=== PATIENT | male | born 1965 | race Caucasian/White ===

== ENCOUNTER 2023-10-04 21:07 | Inpatient (IN) | payer MEDICAID, MEDICARE, OTHER ==
[~2023-10-04] VITALS: Ht 170.2 cm; Wt 71.3 kg
[~2023-10-04 21:07] MED LIST: OLAN5TAB52 PO
[2023-10-04 22:13] LABS: ALCOHOL, URINE DRUG SCREEN NEGATIVE (NEGATIVE); AMPHET/METH SCREEN,URINE NEGATIVE (NEGATIVE); BARBITURATE SCREEN, URINE NEGATIVE (NEGATIVE); BENZODIAZEPINES SCREEN,URINE NEGATIVE (NEGATIVE); CANNABINOID SCREEN,URINE NEGATIVE (NEGATIVE); COCAINE SCREEN,URINE NEGATIVE (NEGATIVE); METHADONE SCREEN, URINE NEGATIVE (NEGATIVE); OPIATE SCREEN,URINE NEGATIVE (NEGATIVE); PHENCYCLIDINE SCREEN,URINE NEGATIVE (NEGATIVE)
[2023-10-04 22:30] LABS: COVID AG,FIA SOURCE NASAL SWAB
[2023-10-04 22:44] LABS: BASOPHILS % (AUTO) 0.2 % (0.0-2.0); EOSINOPHILS % (AUTO) 0.3 % (1.0-6.0); HEMATOCRIT 43.2 % (41-53); LYMPHOCYTES # (AUTO) 1.4 K/uL (1.0-4.8); LYMPHOCYTES % (AUTO) 12.2 % (22.0-44.0); MEAN CORPUSCULAR HEMOGLOBIN 29.4 pg (26.0-34.0); MEAN CORPUSCULAR HGB CONC 32.5 G/dL (31.0-37.0); MEAN CORPUSCULAR VOLUME 91 fL (80-100); MONOCYTES # (AUTO) 0.9 K/uL (0.1-1.0); MONOCYTES % (AUTO) 7.6 % (2.0-9.0); NEUTROPHILS # (AUTO) 9.2 K/uL (1.8-7.7); NEUTROPHILS % (AUTO) 79.7 % (40.0-70.0); PLATELET COUNT (AUTO) 338 K/uL (150-450); RED BLOOD CELL COUNT(AUTO) 4.77 MIL/uL (4.50-5.90); RED CELL DISTRIBUTION WIDTH 13.4 % (11.5-14.5); WHITE BLOOD COUNT (AUTO) 11.5 K/uL (4.5-11.0)
[2023-10-04] MEDS: LORazepam 2 MG TABLET PO ONE (22:44)
[2023-10-04 22:48] LABS: SARS-COV2 (COVID) ANTIGEN,FIA Negative (Negative)
[2023-10-04 22:58] LABS: ANION GAP 11 mmol/L (8-16); CALCIUM, TOTAL 9.1 mg/dL (8.8-10.5); CARBON DIOXIDE 26 mmol/L (22-29); CHLORIDE 101 mmol/L (98-107); CREATININE 0.81 mg/dL (0.60-1.30); GLOMERULAR FILTR. RATE CALC > 60 mL/min (>60); GLUCOSE,RANDOM 119 mg/dL (70-110); POTASSIUM 3.5 mmol/L (3.5-5.1); SODIUM SERUM 138 mmol/L (136-145); UREA NITROGEN, BLOOD 10 mg/dL (7-18)
[2023-10-04] MEDS ORDERED: LORazepam 2 MG TABLET PO PRN (23:00)
[2023-10-04] MEDS ORDERED: OLANZapine 5 MG RAPDIS TABLET PO PRN (23:00)
[2023-10-04 23:05] LABS: ALANINE AMINOTRANSFERASE 23 U/L (12-78); ALBUMIN 4.3 g/dL (3.4-5.0); ALKALINE PHOSPHATASE 95 U/L (46-116); ASPARTATE AMINOTRANSFERASE 16 U/L (15-37); BILIRUBIN,TOTAL 1.7 mg/dL (0.1-1.0); TOTAL PROTEIN, SERUM 7.8 g/dL (6.4-8.2)
[2023-10-04 23:48] LABS: ALCOHOL, BLOOD (SERUM) < 3 mg/dL (0-10)
[2023-10-05] MEDS ORDERED: PROMETHAZINE HCL 25 MG TABLET PO PRN (11:30)
[2023-10-05] MEDS ORDERED: MAG HYDROX/ALUMINUM HYD/SIMETH ES 30 ML SUSPENSION UDCUP PO PRN (11:30)
[2023-10-05] MEDS ORDERED: MAGNESIUM HYDROXIDE SUSPENSION 30 ML UDCUP PO PRN (11:30)
[2023-10-05] MEDS ORDERED: LOPERAMIDE HCL 2 MG CAPSULE PO PRN (11:30)
[2023-10-05] MEDS ORDERED: ACETAMINOPHEN 325 MG TABLET PO PRN (11:30)
[2023-10-05] MEDS ORDERED: TUBERCULIN, PURIFIED PROTEIN DERIVATIVE 5 TU/0.1 ML SYRINGE ID ONE (11:30)
[2023-10-05] MEDS ORDERED: HydrOXYzine PAMOATE 50 MG CAPSULE PO PRN (11:30)
[2023-10-05] MEDS ORDERED: GuaiFENesin/D-METHORPHAN [SUGAR-FREE] 200-20MG/10 ML SYRUP UDCUP PO PRN (11:30)
[2023-10-05 13:29] VITALS: BP 148/88; PULSE 89; RESP 18; TEMP 98; O2SAT 98
[2023-10-05] MEDS: THIAMINE 100 MG TABLET PO SCH (16:43)
[2023-10-05] MEDS: PALIPERIDONE PALMITATE 234 MG/1.5 ML SYRINGE IM ONE (17:30)
[2023-10-05 20:03] VITALS: BP 150/96; PULSE 95; RESP 18; TEMP 97.7; O2SAT 99
[2023-10-05] MEDS: OLANZapine 5 MG RAPDIS TABLET PO SCH (20:37)
[2023-10-05] MEDS: MELATONIN 5 MG TABLET PO SCH (20:38)
[2023-10-06] MEDS: FOLIC ACID 1 MG TABLET PO SCH (08:03)
[2023-10-06] MEDS: MULTIVITAMINS WITH MINERALS, THERAPEUTIC TABLET PO SCH (08:03)
[2023-10-06 08:53] LABS: BASOPHILS % (AUTO) 0.4 % (0.0-2.0); EOSINOPHILS % (AUTO) 1.3 % (1.0-6.0); HEMATOCRIT 39.7 % (41-53); HEMOGLOBIN 13.3 g/dL (13.5-17.5); LYMPHOCYTES # (AUTO) 1.3 K/uL (1.0-4.8); LYMPHOCYTES % (AUTO) 16.4 % (22.0-44.0); MEAN CORPUSCULAR HEMOGLOBIN 30.1 pg (26.0-34.0); MEAN CORPUSCULAR HGB CONC 33.4 G/dL (31.0-37.0); MEAN CORPUSCULAR VOLUME 90 fL (80-100); MONOCYTES # (AUTO) 0.7 K/uL (0.1-1.0); MONOCYTES % (AUTO) 8.4 % (2.0-9.0); NEUTROPHILS % (AUTO) 73.5 % (40.0-70.0); PLATELET COUNT (AUTO) 267 K/uL (150-450); RED CELL DISTRIBUTION WIDTH 13.4 % (11.5-14.5); WHITE BLOOD COUNT (AUTO) 8.2 K/uL (4.5-11.0)
[2023-10-06 09:20] LABS: CHOL/HDL RATIO 2.8 (4.2-7.3); FREE T4 (FREE THYROXINE) 1.38 ng/dL (0.76-1.46); THYROID STIMULATING HORMONE 1.21 uIU/mL (0.36-3.74)
[2023-10-06 09:27] VITALS: BP 131/76; PULSE 96; RESP 17; TEMP 97.7; O2SAT 100
[2023-10-06 21:22] VITALS: BP 130/74; PULSE 89; RESP 16; TEMP 98.6; O2SAT 99
[2023-10-07 08:10] VITALS: BP 124/79; PULSE 91; RESP 19; TEMP 97.3; O2SAT 99
[2023-10-07 21:03] VITALS: BP 142/82; PULSE 100; RESP 18; TEMP 98.5
[2023-10-08 10:43] VITALS: BP 137/78; PULSE 90; RESP 17; TEMP 98; O2SAT 98
[2023-10-08] MEDS: DIVALPROEX SODIUM 500 MG ER TABLET PO SCH (21:21)
[2023-10-08 23:30] VITALS: RESP 18
[2023-10-09 08:01] VITALS: BP 135/70; PULSE 96; RESP 18; TEMP 97.6; O2SAT 100
[2023-10-09] MEDS: PALIPERIDONE PALMITATE 156 MG/ML SYRINGE IM ONE (10:14)
[2023-10-09 20:02] VITALS: BP 145/86; PULSE 100; RESP 19; TEMP 97.8; O2SAT 99
[2023-10-09] MEDS: ZOLPIDEM TARTRATE 10 MG TABLET PO PRN (20:21)
[2023-10-10 08:02] VITALS: BP 133/80; PULSE 87; RESP 18; TEMP 98; O2SAT 100
[2023-10-10 20:03] VITALS: BP 136/90; PULSE 102; RESP 18; TEMP 97.8; O2SAT 100
[2023-10-11 08:28] VITALS: BP 131/67; PULSE 92; RESP 18; TEMP 98; O2SAT 97
[2023-10-11 21:45] VITALS: BP 114/79; PULSE 120; RESP 18; TEMP 97.5; O2SAT 98
[2023-10-12 08:17] VITALS: BP 127/71; PULSE 96; RESP 18; TEMP 97.8; O2SAT 97
[2023-10-12 20:19] VITALS: BP 123/82; PULSE 98; RESP 17; TEMP 98.3; O2SAT 99
[2023-10-12] MEDS: OLANZapine 10 MG RAPDIS TABLET PO SCH (20:34)
[2023-10-13 08:04] VITALS: BP 119/69; PULSE 88; RESP 18; TEMP 97.9; O2SAT 98
[2023-10-13 20:14] VITALS: BP 157/89; PULSE 99; RESP 18; TEMP 98.2; O2SAT 100
[2023-10-14 08:27] VITALS: BP 136/78; PULSE 86; RESP 16; TEMP 97.5; O2SAT 100
[2023-10-14 22:10] VITALS: BP 138/93; PULSE 108; RESP 17; TEMP 97.5; O2SAT 98
[2023-10-15 08:27] VITALS: BP 131/88; PULSE 90; RESP 17; TEMP 97.5; O2SAT 100
[2023-10-15] MEDS ORDERED: GABAPENTIN 300 MG CAPSULE PO PRN (14:30)
[2023-10-15] MEDS ORDERED: ESZOPICLONE 3 MG TABLET PO PRN (14:30)
[2023-10-15 20:32] VITALS: BP 128/84; PULSE 102; RESP 18; TEMP 97.4; O2SAT 99
[2023-10-16 08:19] VITALS: BP 120/80; PULSE 90; RESP 18; TEMP 98; O2SAT 99
[2023-10-16 21:44] VITALS: BP 140/83; PULSE 90; RESP 18; TEMP 98.1; O2SAT 100
[2023-10-17 08:26] VITALS: BP 122/71; PULSE 88; RESP 19; TEMP 97.9; O2SAT 98
[2023-10-17 21:04] VITALS: BP 127/75; PULSE 89; RESP 19; TEMP 97.6; O2SAT 98
[2023-10-18 08:29] VITALS: BP 120/78; PULSE 111; RESP 18; TEMP 97.2; O2SAT 99
[2023-10-18 20:58] VITALS: BP 126/73; PULSE 76; RESP 18; TEMP 97.6; O2SAT 100
[2023-10-19 08:43] VITALS: BP 114/69; PULSE 82; RESP 19; TEMP 97.9; O2SAT 96
[2023-10-19 20:21] VITALS: BP 118/69; PULSE 75; RESP 19; TEMP 97.3; O2SAT 100
[2023-10-20 08:10] VITALS: BP 120/73; PULSE 79; RESP 17; TEMP 97.4; O2SAT 100
[2023-10-20 20:26] VITALS: BP 120/73; PULSE 75; RESP 17; TEMP 97.6; O2SAT 100
[2023-10-21 08:30] VITALS: BP 112/68; PULSE 75; RESP 16; TEMP 98.3; O2SAT 100
[2023-10-21 20:13] VITALS: BP 126/67; PULSE 84; RESP 18; TEMP 98
[2023-10-22 08:33] VITALS: BP 130/77; PULSE 95; RESP 17; TEMP 98; O2SAT 95
[2023-10-22 20:12] VITALS: BP 125/75; PULSE 81; RESP 19; TEMP 97.8; O2SAT 92
[2023-10-23 08:25] VITALS: BP 140/76; PULSE 80; RESP 17; TEMP 98; O2SAT 100
[2023-10-23 20:42] VITALS: BP 125/73; PULSE 77; RESP 19; TEMP 97.9; O2SAT 99
[2023-10-24 08:26] VITALS: BP 122/75; PULSE 80; RESP 17; TEMP 97.8; O2SAT 98
[2023-10-24 20:40] VITALS: BP 117/77; PULSE 75; RESP 17; TEMP 97.8; O2SAT 99
[2023-10-25 08:23] VITALS: BP 144/65; PULSE 73; RESP 17; TEMP 97.5; O2SAT 98
[2023-10-25 21:51] VITALS: BP 129/79; PULSE 84; RESP 16; TEMP 96.9; O2SAT 96
[2023-10-26 08:35] VITALS: BP 117/68; PULSE 73; RESP 18; TEMP 97.6; O2SAT 100
[2023-10-26 20:13] VITALS: BP 128/79; PULSE 74; RESP 20; TEMP 97.9; O2SAT 100
[2023-10-26] MEDS: DIVALPROEX SODIUM 250 MG ER TABLET PO SCH (20:53)
[2023-10-27 08:36] VITALS: BP 120/75; PULSE 88; RESP 18; TEMP 97.7; O2SAT 98
[2023-10-27 20:10] VITALS: BP 117/71; PULSE 75; RESP 20; TEMP 98; O2SAT 99
[2023-10-28 08:28] VITALS: BP 121/74; PULSE 78; RESP 17; TEMP 97.6; O2SAT 100
[2023-10-28] MEDS ORDERED: OLAN10TA26 PO (10:50)
[2023-10-28] MEDS ORDERED: DIVA500T53 PO (10:50)
[2023-10-28] MEDS ORDERED: MELA5TAB40 PO (10:51)
== END 2023-10-28 12:15 | disposition home or self-care (01) | DRG 750 ==
LOC: EMS 21:08 → B2S 10-05 08:19
PROVIDERS: ADMIT Psychiatry & Neurology Psychiatry; ATTEND Psychiatry & Neurology Psychiatry
PROC: GZHZZZZ Group Psychotherapy (ICD-10-PCS; principal; 2023-10-28)
DX: F20.0 Paranoid schizophrenia (principal); Z91.148 Patient's other noncompliance with medication regimen for other reason; F17.210 Nicotine dependence, cigarettes, uncomplicated; F32.A Depression, unspecified; Z20.822 Contact with and (suspected) exposure to COVID-19; I10 Essential (primary) hypertension; J44.9 Chronic obstructive pulmonary disease, unspecified; Z79.899 Other long term (current) drug therapy
CPT/HCPCS: 80053; 80061; 80164; 80307; 83036; 84439; 84443; 85025; 86592; 87081; 99285; G0480; Q9967